=== PATIENT | female | born 1980 | race Caucasian/White ===

== ENCOUNTER 2017-11-22 22:51 | Emergency (ER) | payer MEDICAID ==
[~2017-11-22] VITALS: Ht 157.5 cm; Wt 75.5 kg
[2017-11-23] MEDS ORDERED: LIDOCAINE HCL 1% 10 ML VIAL INJ ONE (01:45)
[2017-11-23] MEDS ORDERED: HYDROCODONE/ACETAMINOPHEN 10-325 MG TABLET PO ONE (01:45)
[2017-11-23 02:53] VITALS: BP 133/70
== END 2017-11-23 03:36 | disposition home or self-care (01) ==
LOC: EMS 22:56
DX: L02.31 Cutaneous abscess of buttock (principal)
CPT/HCPCS: 10060; 99283; J3490

== ENCOUNTER 2017-11-25 11:34 | Emergency (ER) | payer MEDICAID ==
[~2017-11-25] VITALS: Ht 157.5 cm; Wt 75.0 kg
[2017-11-25 12:49] VITALS: BP 122/77
== END 2017-11-25 13:09 | disposition home or self-care (01) ==
LOC: EMS 11:35
DX: Z48.00 Encounter for change or removal of nonsurgical wound dressing (principal)
CPT/HCPCS: 99282

== ENCOUNTER 2017-11-27 14:12 | Emergency (ER) | payer MEDICAID ==
[~2017-11-27] VITALS: Ht 154.9 cm; Wt 75.5 kg
[2017-11-27] MEDS ORDERED: SULF1TAB42 PO (14:20)
[2017-11-27 15:25] VITALS: BP 118/75
== END 2017-11-27 16:35 | disposition home or self-care (01) ==
LOC: EMS 14:15
DX: L02.31 Cutaneous abscess of buttock (principal); R03.0 Elevated blood-pressure reading, without diagnosis of hypertension
CPT/HCPCS: 99283

== ENCOUNTER 2017-11-29 12:00 | Emergency (ER) | payer MEDICAID ==
[~2017-11-29] VITALS: Ht 157.5 cm; Wt 76.8 kg
[~2017-11-29 12:00] MED LIST: SULF1TAB42 PO
[2017-11-29 12:08] VITALS: BP 117/67
== END 2017-11-29 14:11 | disposition home or self-care (01) ==
LOC: EMS 12:01
DX: Z48.01 Encounter for change or removal of surgical wound dressing (principal); Z79.2 Long term (current) use of antibiotics
CPT/HCPCS: 99283

== ENCOUNTER 2018-04-30 17:07 | Emergency (ER) | payer MEDICAID ==
[~2018-04-30] VITALS: Ht 154.9 cm; Wt 68.2 kg
[2018-04-30] MEDS ORDERED: AMOX250T PO (17:24)
[2018-04-30 19:28] VITALS: BP 131/69
[2018-04-30] MEDS ORDERED: CefTRIAXone SODIUM 1 GM/VIAL IM ONE (19:30)
[2018-04-30] MEDS ORDERED: LIDOCAINE HCL 1% 10 ML VIAL INJ ONE (19:30)
[2018-04-30] MEDS ORDERED: LIDOCAINE HCL/PF 1% 2 ML VIAL IM ONE (19:30)
== END 2018-04-30 20:03 | disposition home or self-care (01) ==
LOC: EMS 17:08
DX: L02.414 Cutaneous abscess of left upper limb (principal); R03.0 Elevated blood-pressure reading, without diagnosis of hypertension; Z90.49 Acquired absence of other specified parts of digestive tract; Z88.1 Allergy status to other antibiotic agents
CPT/HCPCS: 10060; 99283; J0696; J3490 ×2

== ENCOUNTER 2018-05-02 08:00 | Emergency (ER) | payer MEDICAID ==
[~2018-05-02] VITALS: Ht 154.9 cm; Wt 75.0 kg
[~2018-05-02 08:00] MED LIST changes: +AMOX250T PO; -SULF1TAB42 PO
[2018-05-02] MEDS ORDERED: CEPH500 PO (08:05)
[2018-05-02] MEDS ORDERED: SULF-261 PO (08:05)
[2018-05-02 08:35] VITALS: BP 118/75
== END 2018-05-02 09:52 | disposition home or self-care (01) ==
LOC: EMS 08:01
DX: Z48.00 Encounter for change or removal of nonsurgical wound dressing (principal); H10.9 Unspecified conjunctivitis; H57.8 Other specified disorders of eye and adnexa
CPT/HCPCS: 99283

== ENCOUNTER 2019-03-01 15:32 | Emergency (ER) | payer MEDICAID ==
[~2019-03-01] VITALS: Ht 154.9 cm; Wt 77.3 kg
[~2019-03-01 15:32] MED LIST changes: -AMOX250T PO; +CEPH500 PO; +SULF-261 PO
[2019-03-01 17:37] VITALS: BP 127/70
[2019-03-01 17:48] LABS: INFLUENZA TYPE A NEGATIVE FOR TYPE A (NEGATIVE); INFLUENZA TYPE B NEGATIVE FOR TYPE B (NEGATIVE)
== END 2019-03-01 18:14 | disposition home or self-care (01) ==
LOC: EMS 15:35
DX: R05 Cough (principal); J02.9 Acute pharyngitis, unspecified; R09.81 Nasal congestion; R50.9 Fever, unspecified; R03.0 Elevated blood-pressure reading, without diagnosis of hypertension; Z90.49 Acquired absence of other specified parts of digestive tract; Z79.899 Other long term (current) drug therapy
CPT/HCPCS: 87804

== ENCOUNTER 2020-01-03 12:50 | Emergency (ER) | payer MEDICAID ==
[~2020-01-03] VITALS: Ht 160 cm; Wt 77.3 kg
[2020-01-03 12:52] VITALS: BP 144/87
[2020-01-03] MEDS ORDERED: PSEUDOEPHEDRINE HCL 30 MG TABLET PO ONE (14:30)
== END 2020-01-03 15:29 | disposition home or self-care (01) ==
LOC: EMS 12:51
DX: J01.90 Acute sinusitis, unspecified (principal); R03.0 Elevated blood-pressure reading, without diagnosis of hypertension; Z90.49 Acquired absence of other specified parts of digestive tract

== ENCOUNTER 2021-05-22 01:51 | Emergency (ER) | payer MEDICAID ==
[~2021-05-22] VITALS: Ht 154.9 cm; Wt 77.3 kg
[2021-05-22 02:35] LABS: APPEARANCE,URINE CLOUDY (CLEAR); BILIRUBIN,URINE NEGATIVE (NEGATIVE); GLUCOSE, URINE (UA) NEGATIVE (NEGATIVE); KETONES,URINE NEGATIVE (NEGATIVE); LEUKOCYTE ESTERASE ,URINE MODERATE (NEGATIVE); NITRATE,URINE NEGATIVE (NEGATIVE); OCCULT BLOOD,URINE LARGE (NEGATIVE); PROTEIN,URINE SEE CONFIRM (NEGATIVE); UROBILINOGEN,URINE 0.2 mg/dL (<=1.0)
[2021-05-22 03:06] LABS: SULFOSALICYLIC ACID,URINE 2+ (Negative)
[2021-05-22 03:07] LABS: WBC,URINE 26-50 /HPF (0-5)
[2021-05-22 03:08] LABS: BACTERIA,URINE Few /HPF (None Seen)
[2021-05-22] MEDS ORDERED: CEPHALEXIN MONOHYDRATE 500 MG CAPSULE PO ONE (04:30)
[2021-05-22] MEDS ORDERED: IBUPROFEN 800 MG TABLET PO ONE (04:30)
[2021-05-22 04:35] VITALS: BP 132/90
== END 2021-05-22 04:40 | disposition home or self-care (01) ==
LOC: EMS 01:52
DX: N39.0 Urinary tract infection, site not specified (principal)
CPT/HCPCS: 81001; 81002; 84703; 87077; 87086; 99283

== ENCOUNTER 2021-08-31 17:38 | Emergency (ER) | payer MEDICAID ==
[~2021-08-31] VITALS: Ht 154.9 cm; Wt 70.5 kg
[2021-08-31 17:40] VITALS: BP 145/77
== END 2021-08-31 18:15 | disposition home or self-care (01) ==
LOC: EMS 17:41
DX: A49.02 Methicillin resistant Staphylococcus aureus infection, unspecified site (principal); L02.93 Carbuncle, unspecified
CPT/HCPCS: 99283

== ENCOUNTER 2021-12-27 05:27 | Emergency (ER) | payer MEDICAID ==
[~2021-12-27] VITALS: Ht 154.9 cm; Wt 79.0 kg
[2021-12-27 06:21] VITALS: BP 133/70
[2021-12-27] MEDS ORDERED: IBUPROFEN 600 MG TABLET PO ONE (06:30)
[2021-12-27] MEDS ORDERED: ACETAMINOPHEN 500 MG TABLET PO ONE (06:30)
[2021-12-27 09:25] LABS: RAPID GROUP A STREP NEGATIVE (NEGATIVE)
[2021-12-27 09:27] LABS: INFLUENZA TYPE A NEGATIVE FOR TYPE A (NEGATIVE); INFLUENZA TYPE B NEGATIVE FOR TYPE B (NEGATIVE)
== END 2021-12-27 10:03 | disposition home or self-care (01) ==
LOC: EMS 05:30
DX: B34.9 Viral infection, unspecified (principal); Z20.822 Contact with and (suspected) exposure to COVID-19
CPT/HCPCS: 87430; 87804; 99283; C9803; U0003

== ENCOUNTER 2022-03-10 06:48 | Emergency (ER) | payer MEDICAID ==
[~2022-03-10] VITALS: Ht 154.9 cm; Wt 81.8 kg
[2022-03-10 06:50] VITALS: BP 132/86
[2022-03-10] MEDS ORDERED: PHEN-846 PO (06:55)
[2022-03-10] MEDS ORDERED: NITR-75 PO (07:24)
[2022-03-10 07:44] LABS: APPEARANCE,URINE HAZY (CLEAR); BILIRUBIN,URINE NEGATIVE (NEGATIVE); GLUCOSE, URINE (UA) NEGATIVE (NEGATIVE); KETONES,URINE NEGATIVE (NEGATIVE); LEUKOCYTE ESTERASE ,URINE LARGE (NEGATIVE); NITRATE,URINE NEGATIVE (NEGATIVE); OCCULT BLOOD,URINE MODERATE (NEGATIVE); PROTEIN,URINE TRACE mg/dL (NEGATIVE); SPECIFIC GRAVITIY, URINE 1.019 (1.003-1.030); UROBILINOGEN,URINE <=1.0 mg/dL (<=1.0)
[2022-03-10 08:00] LABS: BACTERIA,URINE Few /HPF (None Seen); SQUAMOUS EPITHELIAL CELL,UR Few /LPF (None Seen); WBC,URINE 26-50 /HPF (0-5)
== END 2022-03-10 08:12 | disposition home or self-care (01) ==
LOC: EMS 06:49
DX: N39.0 Urinary tract infection, site not specified (principal); Z79.899 Other long term (current) drug therapy
CPT/HCPCS: 81001; 81002; 87086; 99283

== ENCOUNTER 2022-11-16 09:36 | Emergency (ER) | payer MEDICAID ==
[~2022-11-16] VITALS: Ht 154.9 cm; Wt 81.8 kg
[~2022-11-16 09:36] MED LIST changes: -CEPH500 PO; +NITR-75 PO; +PHEN-846 PO; -SULF-261 PO
[2022-11-16] MEDS ORDERED: KETOROLAC TROMETHAMINE 30 MG/ML VIAL IM ONE (11:30)
[2022-11-16] MEDS ORDERED: DIAZEPAM 5 MG TABLET PO ONE (11:30)
[2022-11-16] MEDS ORDERED: LIDOCAINE 5% TRANSDERMAL PATCH TD ONE (11:30)
[2022-11-16 12:16] VITALS: BP 145/78
[2022-11-16] MEDS ORDERED: IBUP-2070 PO (12:29)
[2022-11-16] MEDS ORDERED: LIDO700A15 TP (12:29)
[2022-11-16] MEDS ORDERED: BACL10TA PO (12:30)
== END 2022-11-16 12:55 | disposition home or self-care (01) ==
LOC: EMS 09:38
DX: M43.6 Torticollis (principal); Z90.49 Acquired absence of other specified parts of digestive tract
CPT/HCPCS: 99283; 96372; J1885

== ENCOUNTER 2023-01-10 10:55 | Emergency (ER) | payer MEDICAID ==
[~2023-01-10] VITALS: Ht 157.5 cm; Wt 70.5 kg
[~2023-01-10 10:55] MED LIST changes: +BACL10TA PO; +IBUP-1492 PO; +LIDO700A15 TP; -NITR-75 PO; -PHEN-846 PO
[2023-01-10] MEDS ORDERED: BACLOFEN 10 MG TABLET PO ONE (12:45)
[2023-01-10] MEDS ORDERED: LIDOCAINE 5% TRANSDERMAL PATCH TD ONE (12:45)
[2023-01-10] MEDS ORDERED: ACETAMINOPHEN 500 MG TABLET PO ONE (12:45)
[2023-01-10 15:22] LABS: APPEARANCE,URINE HAZY (CLEAR); BILIRUBIN,URINE NEGATIVE (NEGATIVE); GLUCOSE, URINE (UA) NEGATIVE (NEGATIVE); KETONES,URINE NEGATIVE (NEGATIVE); LEUKOCYTE ESTERASE ,URINE MODERATE (NEGATIVE); NITRATE,URINE NEGATIVE (NEGATIVE); OCCULT BLOOD,URINE SMALL (NEGATIVE); PH,URINE 6.5 (5.0-8.0); PROTEIN,URINE NEGATIVE (NEGATIVE); SPECIFIC GRAVITIY, URINE 1.015 (1.003-1.030); UROBILINOGEN,URINE <=1.0 mg/dL (<=1.0)
[2023-01-10 15:43] LABS: BACTERIA,URINE Few /HPF (None Seen); RBC,URINE 0-2 /HPF (0-2); SQUAMOUS EPITHELIAL CELL,UR Few /LPF (None Seen)
[2023-01-10 16:04] LABS: BASOPHILS % (AUTO) 0.9 % (0.0-2.0); EOSINOPHILS % (AUTO) 2.8 % (1.0-6.0); HEMATOCRIT 40.3 % (36-46); HEMOGLOBIN 13.2 g/dL (12.0-16.0); LYMPHOCYTES # (AUTO) 2.6 K/uL (1.0-4.8); LYMPHOCYTES % (AUTO) 29.8 % (22.0-44.0); MEAN CORPUSCULAR HEMOGLOBIN 29.5 pg (26.0-34.0); MEAN CORPUSCULAR HGB CONC 32.7 G/dL (31.0-37.0); MEAN CORPUSCULAR VOLUME 90 fL (80-100); MONOCYTES # (AUTO) 0.6 K/uL (0.1-1.0); MONOCYTES % (AUTO) 7.2 % (2.0-9.0); NEUTROPHILS # (AUTO) 5.3 K/uL (1.8-7.7); NEUTROPHILS % (AUTO) 59.3 % (40.0-70.0); PLATELET COUNT (AUTO) 246 K/uL (150-450); RED BLOOD CELL COUNT(AUTO) 4.47 MIL/uL (4.00-5.20); RED CELL DISTRIBUTION WIDTH 13.6 % (11.5-14.5)
[2023-01-10 16:15] LABS: ANION GAP 8 mmol/L (8-16); CALCIUM, TOTAL 8.8 mg/dL (8.8-10.5); CARBON DIOXIDE 28 mmol/L (22-29); CHLORIDE 105 mmol/L (98-107); GLOMERULAR FILTR. RATE CALC > 60 mL/min (>60); GLUCOSE,RANDOM 87 mg/dL (70-110); SODIUM SERUM 141 mmol/L (136-145); UREA NITROGEN, BLOOD 11 mg/dL (7-18)
[2023-01-10 16:30] VITALS: BP 127/79
[2023-01-10] MEDS ORDERED: LIDO700A15 TP (16:36)
[2023-01-10] MEDS ORDERED: NITR-75 PO (16:36)
[2023-01-10] MEDS ORDERED: BACL10TA PO (16:37)
[2023-01-10] MEDS ORDERED: PHEN-846 PO (16:37)
== END 2023-01-10 16:52 | disposition home or self-care (01) ==
LOC: EMS 10:57
DX: M25.512 Pain in left shoulder (principal); N39.0 Urinary tract infection, site not specified; Z90.49 Acquired absence of other specified parts of digestive tract
CPT/HCPCS: 71046; 80048; 81001; 85025; 87086; 87186; 99284; 36415-L1; 36415-TC